=== PATIENT | female | born 1995 | race Caucasian/White ===

== ENCOUNTER 2019-11-30 18:49 | Emergency (ER) | payer BC, MEDICAID, OTHER ==
[2019-11-30] MEDS ORDERED: Bupivacaine 0.5% 30 ML SDV INFILT ONE (19:48)
--- NOTE | 2019-11-30 19:51 | EDM.PDOC ---
ED HPI GENERAL MEDICAL PROBLEM - General Chief Complaint: Laceration Stated Complaint: LACERATION TO POINTER FINGER RIGHT HAND Time Seen by Provider: 11/30/19 19:49 Source of Information: Reports: Patient History Limitations: Reports: No Limitations - History of Present Illness INITIAL COMMENTS - FREE TEXT/NARRATIVE: 23-year-old female with no pertinent past medical history presenting with a laceration to the index finger of her right hand. Approximately 30 minutes prior to arrival, the patient cut her right index finger with a glass plate that broke. No other injuries. Denies any numbness or tingling to the right second finger. No self treatment prior to arrival. States tetanus immunization status is up-to-date. right fingert Pain Score (Numeric/FACES): 6 - Related Data Allergies Allergy/AdvReac Type Severity Reaction Status Date / Time No Known Allergies Allergy Verified 11/30/19 19:44 Home Meds: Home Meds . [No Known Home Meds] 11/30/19 [History] Past Medical History - Past Health History Medical/Surgical History: Denies Medical/Surgical History - Past Surgical History GI Surgical History: Reports: Appendectomy Social & Family History - Family History Family Medical History: Noncontributory - Tobacco Use Smoking Status *Q: Current Every Day Smoker Years of Tobacco use: 2 Packs/Tins Daily: 0.5 - Recreational Drug Use Recreational Drug Use: Yes Recreational Drug Type: Reports: Marijuana/Hashish ED ROS GENERAL - Review of Systems Review Of Systems: See Below Constitutional: Reports: No Symptoms HEENT: Reports: No Symptoms Respiratory: Reports: No Symptoms Cardiovascular: Reports: No Symptoms Endocrine: Reports: No Symptoms GI/Abdominal: Reports: No Symptoms : Reports: No Symptoms Musculoskeletal: Reports: No Symptoms Skin: Reports: Wound Neurological: Denies: Numbness, Paresthesia, Tingling Psychiatric: Reports: No Symptoms Hematologic/Lymphatic: Reports: No Symptoms Immunologic: Reports: No Symptoms ED EXAM, SKIN/RASH Exam: See Below Text/Narrative:: Vital signs reviewed. Nursing notes reviewed. Constitutional: Awake, alert, non-distressed Head: Normocephalic, atraumatic Eyes: EOMI, conjunctiva normal, no discharge, no scleral icterus Ears, Nose, Throat: External ears and ears normal, moist oral mucosa Cardiovascular: 2+ radial pulse, capillary refill less than 2 seconds in right index finger Pulmonary: normal work of breathing, no accessory muscle use Abdomen/GI: Soft, nontender, nondistended, no guarding or rigidity, no masses Musculoskeletal: No deformities Integumentary: Appropriate color for ethnicity, warm, dry, no pallor or jaundice , no rash. Avulsion with skin flap noted to the volar aspect of middle phalanx of the right index finger, transitioning to a 1 cm linear laceration over the volar aspect of the proximal phalanx of the right index finger. Neurologic: Alert, answering questions appropriately, normal speech, no facial droop, moving all extremities well. Sensation intact to light touch in the right index finger. Psychiatric: Appropriate mood and affect, normal thought process ED SKIN PROCEDURES - Laceration/Wound Repair Right Anterior Digit - 2nd (Index) Distal NVT: Neuro & Vascular Intact, No Tendon Injury Anesthetic Type: Digital Local Anesthesia - Bupivicaine (Marcaine): 0.5% Plain Local Anesthetic Volume: 2cc Skin Prep: Saline Exploration/Debridement/Repair: Wound Explored, In a Bloodless Field, Explored to Base, Minimal Debridement, No Foreign Material Found Closed with: Sutures Lac/Wound length In cm: 3 Suture Size: 4-0 # of Sutures: 3 Drain Placement: No Sterile Dressing Applied: Nurse Tetanus Status Addressed: Yes (Tetanus immunization up-to-date as of 2018) Complications: No Progress/Comments: A skin flap was noted over the middle phalanx of the right index finger, this was sharply debrided as the skin flap did not appear viable to normal wound healing. Surgicel dressing was placed over the exposed tissue, with good hemostatic result. The lower linear laceration over the proximal phalanx was loosely approximated with nylon sutures, this area also had suffered tissue avulsion and was not amenable to exact apposition by suture closure. Course - Vital Signs Text/Narrative:: Patient hemodynamically stable and well-appearing on arrival. Wounds noted to the right index finger, no wounds appreciated elsewhere. Tetanus immunization status is up-to-date. Wound repair was performed as detailed in the procedure documentation. Tube gauze was applied and the digit was splinted in extension with a foam splint. Patient will return in 1 week for suture removal. Wound care precautions were provided along with ED return precautions. All questions were answered prior to being discharged. Last Recorded V/S: Last Vital Signs Temp 36.6 C 11/30/19 19:42 Pulse 99 11/30/19 19:42 Resp 16 11/30/19 19:42 BP 112/72 11/30/19 19:42 Pulse Ox 99 11/30/19 19:42 - Orders/Labs/Meds Orders: Active Orders 24 hr Category Date Time Status Communication Order [RC] STAT Care 11/30/19 19:49 Active Procedure Tray at Bedside [RC] ASDIRECTED Care 11/30/19 19:49 Active Meds: Medications Discontinued Medications Generic Name Dose Route Start Last Admin Trade Name Zhang PRN Reason Stop Dose Admin Bupivacaine HCl 10 ml 11/30/19 19:48 11/30/19 20:37 Marcaine 0.5% INFILT 11/30/19 19:49 Not Given ONETIME ONE Bupivacaine HCl 10 ml 11/30/19 20:15 11/30/19 20:36 Sensorcaine-Mpf 0.5% INJECT 11/30/19 20:16 10 ml ONETIME ONE Administration Bupivacaine HCl Confirm 11/30/19 20:15 11/30/19 20:37 Sensorcaine-Mpf 0.5% Administered 11/30/19 20:16 Not Given Dose 10 ml .ROUTE .STK-MED ONE Departure - Departure Time of Disposition: 22:29 Disposition: Home, Self-Care 01 Condition: Good Clinical Impression: Laceration of right index finger Qualifiers: Encounter type: initial encounter Damage to nail status: without damage Foreign body presence: without foreign body Qualified Code(s): S61.210A - Laceration without foreign body of right index finger without damage to nail, initial encounter - Discharge Information *PRESCRIPTION DRUG MONITORING PROGRAM REVIEWED*: Not Applicable *COPY OF PRESCRIPTION DRUG MONITORING REPORT IN PATIENT JONATHAN: Not Applicable Instructions: Laceration Care, Adult, Sutures, Connor, or Adhesive Wound Closure Referrals: [facility] - [facility] [Provider Group] - 1 Week (Make an appointment to have your sutures removed in 1 week. You can also return to the emergency department to have your sutures removed.) Forms: ED Department Discharge Additional Instructions: The following information is given to patients seen in the emergency department who are being discharged to home. This information is to outline your options for follow-up care. We provide all patients seen in our emergency department with a follow-up referral. The need for follow-up, as well as the timing and circumstances, are variable depending upon the specifics of your emergency department visit. If you don't have a primary care physician on staff, we will provide you with a referral. We always advise you to contact your personal physician following an emergency department visit to inform them of the circumstance of the visit and for follow-up with them and/or the need for any referrals to a consulting specialist. The emergency department will also refer you to a specialist when appropriate. This referral assures that you have the opportunity for follow-up care with a specialist. All of these measure are taken in an effort to provide you with optimal care, which includes your follow-up. Under all circumstances we always encourage you to contact your private physician who remains a resource for coordinating your care. When calling for follow-up care, please make the office aware that this follow-up is from your recent emergency room visit. If for any reason you are refused follow-up, please contact the [facility] Emergency Department at and asked to speak to the emergency department charge nurse. Sepsis Event Note - Evaluation Sepsis Screening Result: No Definite Risk - Focused Exam Vital Signs: Vital Signs Temp Pulse Resp BP Pulse Ox 11/30/19 19:42 36.6 C 99 16 112/72 99 Date Exam was Performed: 11/30/19 Time Exam was Performed: 22:24 - My Orders Last 24 Hours: My Active Orders 11/30/19 19:49 Communication Order [RC] STAT Procedure Tray at Bedside [RC] ASDIRECTED - Assessment/Plan Last 24 Hours: My Active Orders 11/30/19 19:49 Communication Order [RC] STAT Procedure Tray at Bedside [RC] ASDIRECTED
[2019-11-30] MEDS ORDERED: Bupivacaine 0.5% 10 ML SDV INJECT ONE (20:15)
[2019-11-30] MEDS ORDERED: Bupivacaine 0.5% 10 ML SDV ONE (20:15)
== END 2019-11-30 22:37 | disposition home or self-care (01) ==
LOC: MW.ED 18:49
DX: S61.210A Laceration without foreign body of right index finger without damage to nail, initial encounter (principal); F17.210 Nicotine dependence, cigarettes, uncomplicated; W25.XXXA Contact with sharp glass, initial encounter
CPT/HCPCS: 12002; 99282; J3490

== ENCOUNTER 2020-02-20 10:45 | Emergency (ER) | payer OTHER ==
[2020-02-20] MEDS ORDERED: Sodium Chloride 0.9% 10 ML Syringe FLUSH PRN (11:36)
[2020-02-20] MEDS ORDERED: Sodium Chloride 0.9% 2.5 ML Syringe FLUSH PRN (11:36)
[2020-02-20] MEDS ORDERED: Lactated Ringers 1,000 ML IV ONE (11:36)
--- NOTE | 2020-02-20 11:55 | EDM.PDOC ---
ED [facility] GENERAL MEDICAL PROBLEM - General Chief Complaint: Respiratory Problem Stated Complaint: SOB FEVER COUGHING Time Seen by Provider: 02/20/20 10:54 Source of Information: Reports: Patient, Old Records History Limitations: Reports: No Limitations - History of Present Illness INITIAL COMMENTS - FREE TEXT/NARRATIVE: 24-year-old female with no past medical history presenting with shortness of breath and infectious symptoms. 3-day history of lightheadedness, intermittent shortness of breath, sore throat, nonproductive cough, and subjective fever. Also complains of intermittent mild headache. No recent sick contacts or international travel. Taking aspirin prior to arrival with partial relief of her symptoms. Denies neck stiffness, hemoptysis, chest discomfort, abdominal pain, nausea, vomiting, diarrhea, GI bleeding, hematemesis, dysuria, urinary frequency, vaginal bleeding, rash. ROS: A 10-point review of systems was negative, except as noted in the HPI (or in the ROS section of this note). Past medical history: Reviewed, no additional pertinent history. Surgical history: Reviewed in system, no additional pertinent history. Social history: Reviewed in system, no additional pertinent history. Family history: Reviewed in system, no additional pertinent history. Limited physical examination was performed due to COVID pandemic, distance examination to prevent physician exposure and to preserve PPE. Vital signs reviewed. Nursing notes reviewed. Constitutional: Awake, alert, non-distressed. Head: Normocephalic, atraumatic. Neck: Able to fully flex, extend, and rotate bilaterally without issue Eyes: No scleral icterus. Neck: Able to fully flex and extend. Fully rotates side to side. Cardiovascular: Tachycardic. No extremity edema. Pulmonary: normal work of breathing, no accessory muscle use. Speaking in full sentences, handling secretions well. Abdomen/GI: nondistended Musculoskeletal: No deformities. Integumentary: Appropriate color for ethnicity, warm, dry, no pallor or jaundice, no rash. Neurologic: Alert, answering questions appropriately, normal speech, no facial droop, moving all extremities well. Psychiatric: Appropriate mood and affect, normal thought process. - Related Data Allergies Allergy/AdvReac Type Severity Reaction Status Date / Time No Known Allergies Allergy Verified 02/20/20 10:58 Home Meds: Home Meds Doxycycline [Vibra-Tabs] 100 mg PO Q12HR 7 Days #14 tab 02/20/20 [Rx] Past Medical History - Past Health History Medical/Surgical History: Denies Medical/Surgical History - Infectious Disease History Infectious Disease History: Reports: Chicken Pox - Past Surgical History GI Surgical History: Reports: Appendectomy Social & Family History - Family History Family Medical History: Noncontributory - Tobacco Use Smoking Status *Q: Current Every Day Smoker Years of Tobacco use: 5 Packs/Tins Daily: 0.5 - Recreational Drug Use Recreational Drug Use: No ED ROS GENERAL - Review of Systems Review Of Systems: See Below ED EXAM, GENERAL - Physical Exam Exam: See Below EKG INTERPRETATION EKG Interpretation Comments: 12-Lead ECG Interpretation Acquired: 11:52 AM Rhythm: Sinus rhythm Rate: 89 bpm [place]: Normal Intervals: Normal Ectopy: None Ischemic Changes: None apparent RV Strain: No obvious RV strain pattern. ST Segments/T-Waves: T wave inversions in aVL only Course - Vital Signs Text/Narrative:: Patient mildly tachycardic, but hemodynamically stable, afebrile, well-appearin g, looks nontoxic. Differential diagnosis includes but is not limited to: Pulmonary embolism, acute coronary syndrome, arrhythmia, anemia, electrolyte disturbance, pneumonia, coronavirus infection, pleural effusion, myopericarditis, acute viral syndrome, etc. Labs reassuring. No leukocytosis. Negative d-dimer and troponin. Negative COVID-19 swab. Electrolytes and renal function reassuring. Chest x-ray concerning for pneumonia with a left-sided infiltrate. No mediastinal widening. Treated with 1 L of IV fluids and heart rate improved from 113 to 80. No evidence of an acute emergency medical condition at this point that would warrant admission to the hospital. Prescription for doxycycline sent to the pharmacy for CAP. Stable to discharge home, symptomatic treatment with Robitussin, cough drops, Tylenol, Motrin, and plenty of fluids, primary care follow-up. Plan: Patient is stable to discharge home with outpatient primary care clinic follow-up. Strict emergency department return precautions were provided, patient indicated understanding. All questions were answered prior to departure. Discharged in good condition. Last Recorded V/S: Last Vital Signs Temp 36.0 C L 02/20/20 10:55 Pulse 113 H 02/20/20 10:55 Resp 18 02/20/20 10:55 BP 124/76 02/20/20 10:55 Pulse Ox 98 02/20/20 10:55 - Orders/Labs/Meds Orders: Active Orders 24 hr Category Date Time Status Cardiac Monitoring [RC] . DIRECTED Care 02/20/20 11:36 Active EKG Documentation Completion [RC] STAT Care 02/20/20 11:36 Active Pulse Oximetry [RC] ASDIRECTED Care 02/20/20 11:36 Active Sodium Chloride 0.9% [Saline Flush] Med 02/20/20 11:36 Active 10 ml FLUSH ASDIRECTED PRN Sodium Chloride 0.9% [Saline Flush] Med 02/20/20 11:36 Active 2.5 ml FLUSH ASDIRECTED PRN Saline Lock Insert [OM.PC] Stat Oth 02/20/20 11:36 Ordered Medication Orders Sodium Chloride (Saline Flush) 10 ml FLUSH ASDIRECTED PRN PRN Reason: Keep Vein Open Sodium Chloride (Saline Flush) 2.5 ml FLUSH ASDIRECTED PRN PRN Reason: Keep Vein Open Labs: Laboratory Tests 02/20/20 02/20/20 02/20/20 Range/Units 11:58 12:04 12:04 WBC 7.97 (4.0-11.0) K/uL RBC 4.09 L (4.30-5.90) M/uL Hgb 12.7 (12.0-16.0) g/dL Hct 37.5 (36.0-46.0) % MCV 91.7 (80.0-98.0) fL MCH 31.1 (27.0-32.0) pg MCHC 33.9 (31.0-37.0) g/dL RDW Std Deviation 39.5 (28.0-62.0) fl RDW Coeff of Gaye 12 (11.0-15.0) % Plt Count 264 (150-400) K/uL MPV 9.00 (7.40-12.00) fL Neut % (Auto) 52.4 (48.0-80.0) % Lymph % (Auto) 29.7 (16.0-40.0) % [place] % (Auto) 14.2 (0.0-15.0) % Eos % (Auto) 3.4 (0.0-7.0) % Baso % (Auto) 0.3 (0.0-1.5) % Neut # (Auto) 4.2 (1.4-5.7) K/uL Lymph # (Auto) 2.4 (0.6-2.4) K/uL [place] # (Auto) 1.1 H (0.0-0.8) K/uL Eos # (Auto) 0.3 (0.0-0.7) K/uL Baso # (Auto) 0.0 (0.0-0.1) K/uL D-Dimer, Quantitative < 0.19 (0.0-0.50) mg/L FEU Sodium (136-145) mmol/L Potassium (3.5-5.1) mmol/L Chloride (98-107) mmol/L Carbon Dioxide (21.0-32.0) mmol/L BUN (7.0-18.0) mg/dL Creatinine (0.6-1.0) mg/dL Est Cr Clr Drug Dosing mL/min Estimated GFR (MDRD) ml/min Glucose (74-106) mg/dL Calcium (8.5-10.1) mg/dL Total Bilirubin (0.2-1.0) mg/dL AST (15-37) IU/L ALT (14-63) IU/L Alkaline Phosphatase (46-116) U/L Troponin I (0.000-0.056) ng/mL Total Protein (6.4-8.2) g/dL Albumin (3.4-5.0) g/dL Globulin (2.6-4.0) g/dL Albumin/Globulin Ratio (0.9-1.6) HCG, Qual (NEG) COVID-19 (AFTAB) NEGATIVE (NEGATIVE) 02/20/20 02/20/20 Range/Units 12:04 12:04 WBC (4.0-11.0) K/uL RBC (4.30-5.90) M/uL Hgb (12.0-16.0) g/dL Hct (36.0-46.0) % MCV (80.0-98.0) fL MCH (27.0-32.0) pg MCHC (31.0-37.0) g/dL RDW Std Deviation (28.0-62.0) fl RDW Coeff of Gaye (11.0-15.0) % Plt Count (150-400) K/uL MPV (7.40-12.00) fL Neut % (Auto) (48.0-80.0) % Lymph % (Auto) (16.0-40.0) % [place] % (Auto) (0.0-15.0) % Eos % (Auto) (0.0-7.0) % Baso % (Auto) (0.0-1.5) % Neut # (Auto) (1.4-5.7) K/uL Lymph # (Auto) (0.6-2.4) K/uL [place] # (Auto) (0.0-0.8) K/uL Eos # (Auto) (0.0-0.7) K/uL Baso # (Auto) (0.0-0.1) K/uL D-Dimer, Quantitative (0.0-0.50) mg/L FEU Sodium 138 (136-145) mmol/L Potassium 4.1 (3.5-5.1) mmol/L Chloride 106 (98-107) mmol/L Carbon Dioxide 28.0 (21.0-32.0) mmol/L BUN 11 (7.0-18.0) mg/dL Creatinine 0.6 (0.6-1.0) mg/dL Est Cr Clr Drug Dosing 111.92 mL/min Estimated GFR (MDRD) > 60.0 ml/min Glucose 84 (74-106) mg/dL Calcium 8.0 L (8.5-10.1) mg/dL Total Bilirubin 0.1 L (0.2-1.0) mg/dL AST 19 (15-37) IU/L ALT 32 (14-63) IU/L Alkaline Phosphatase 58 (46-116) U/L Troponin I < 0.050 (0.000-0.056) ng/mL Total Protein 6.4 (6.4-8.2) g/dL Albumin 3.2 L (3.4-5.0) g/dL Globulin 3.2 (2.6-4.0) g/dL Albumin/Globulin Ratio 1.0 (0.9-1.6) HCG, Qual NEGATIVE (NEG) COVID-19 (AFTAB) (NEGATIVE) Meds: Medications Generic Name Dose Route Start Last Admin Trade Name Freq PRN Reason Stop Dose Admin Sodium Chloride 10 ml 02/20/20 11:36 Saline Flush FLUSH ASDIRECTED PRN Keep Vein Open Sodium Chloride 2.5 ml 02/20/20 11:36 Saline Flush FLUSH ASDIRECTED PRN Keep Vein Open Discontinued Medications Generic Name Dose Route Start Last Admin Trade Name Freq PRN Reason Stop Dose Admin Lactated Ringer's 1,000 mls @ 999 mls/hr 02/20/20 11:36 02/20/20 11:48 Ringers, Lactated IV 02/20/20 12:36 999 mls/hr .BOLUS ONE Administration Departure - Departure Time of Disposition: 13:37 Disposition: Home, Self-Care 01 Condition: Good Clinical Impression: Encounter for laboratory testing for COVID-19 virus Community acquired pneumonia Qualifiers: Laterality: left Lung location: unspecified part of lung Qualified Code(s): J18.9 - Pneumonia, unspecified organism - Discharge Information *PRESCRIPTION DRUG MONITORING PROGRAM REVIEWED*: Not Applicable *COPY OF PRESCRIPTION DRUG MONITORING REPORT IN PATIENT JONATHAN: Not Applicable Prescriptions: Doxycycline [Vibra-Tabs] 100 mg PO Q12HR 7 Days #14 tab Instructions: Community-Acquired Pneumonia, Adult Referrals: [facility] - [facility] [Provider Group] - 1 Week Forms: ED Department Discharge Additional Instructions: Take your antibiotics as directed for pneumonia. I recommend [id number] Tylenol and Motrin for fever aches, Robitussin or cough drops for cough. Drink plenty of fluids. Be sure to wear your mask and cover your cough, wash your hands frequently. Try to isolate from others. You should not go to work or be around other people until you have been well for at least 72 hours straight. Return to the ER if you have shortness of breath, chest pain, or any other concerning symptoms. Thank you for choosing the [facility] emergency department in [place] for your medical needs today. It was a pleasure caring for you. The following information is given to patients seen in the emergency department who are being discharged. This information is to outline your options for follow-up care. We provide all patients seen in our emergency department with a follow-up referral. The need for follow-up, as well as the timing and circumstances, are variable depending upon the specifics of your emergency department visit. If you don't have a primary care physician on staff, we will provide you with a referral. We always advise you to contact your personal physician following an emergency department visit to inform them of the circumstance of the visit and for follow-up with them and/or the need for any referrals to a consulting specialist. The emergency department will also refer you to a specialist when appropriate. This referral assures that you have the opportunity for follow-up care with a specialist. All of these measure are taken in an effort to provide you with optimal care, which includes your follow-up. Under all circumstances we always encourage you to contact your private physician who remains a resource for coordinating your care. When calling for follow-up care, please make the office aware that this follow-up is from your re cent emergency room visit. If for any reason you are refused follow-up, please contact the [facility] Emergency Department at and asked to speak to the emergency department charge nurse. If you do not have a primary care physician that is caring for you, you can contact these clinics below to set up an appointment to establish care: [facility] - Primary Care [address] [place], [place] [id number] [place] [address] Sepsis Event Note (ED) - Evaluation Sepsis Screening Result: No Definite Risk - Focused Exam Vital Signs: Vital Signs Temp Pulse Resp BP Pulse Ox 02/20/20 10:55 36.0 C L 113 H 18 124/76 98 - My Orders Last 24 Hours: My Active Orders 02/20/20 11:36 Cardiac Monitoring [RC] . DIRECTED EKG Documentation Completion [RC] STAT Pulse Oximetry [RC] ASDIRECTED Sodium Chloride 0.9% [Saline Flush] 10 ml FLUSH ASDIRECTED PRN Sodium Chloride 0.9% [Saline Flush] 2.5 ml FLUSH ASDIRECTED PRN Saline Lock Insert [OM.PC] Stat - Assessment/Plan Last 24 Hours: My Active Orders 02/20/20 11:36 Cardiac Monitoring [RC] . DIRECTED EKG Documentation Completion [RC] STAT Pulse Oximetry [RC] ASDIRECTED Sodium Chloride 0.9% [Saline Flush] 10 ml FLUSH ASDIRECTED PRN Sodium Chloride 0.9% [Saline Flush] 2.5 ml FLUSH ASDIRECTED PRN Saline Lock Insert [OM.PC] Stat
[2020-02-20 12:49] LABS: BLOOD UREA NITROGEN,BUN 11 mg/dL (7.0-18.0); CHLORIDE,CL 106 mmol/L (98-107); GLUCOSE RANDOM 84 mg/dL (74-106); POTASSIUM,K 4.1 mmol/L (3.5-5.1); SODIUM,NA 138 mmol/L (136-145)
--- NOTE | 2020-02-20 13:41 | CR ---
Chest: Portable view of the chest was obtained. Comparison: No previous chest x-ray is available. Patchy increased density within the left mid to lower lung is seen. Lungs otherwise are clear. Heart size and mediastinum are normal. Bony structures are grossly intact. Impression: 1. Increased density within left mid to lower lung. Finding is suspicious for pneumonia. Please correlate if this matches patient's clinical symptoms. Diagnostic code #3 Study was dictated in MDT
== END 2020-02-20 13:59 | disposition home or self-care (01) ==
LOC: MW.ED 10:45
DX: J18.9 Pneumonia, unspecified organism (principal); F17.210 Nicotine dependence, cigarettes, uncomplicated; Z20.828 Contact with and (suspected) exposure to other viral communicable diseases
CPT/HCPCS: 71045; 80053; 84484; 84703; 85025; 85379; 87635; 93005; 96360; 99285; J7120; 99284; U0002